=== PATIENT | female | born 1975 | race Hispanic/Latino ===

== ENCOUNTER 2017-08-05 14:30 | Emergency (ER) | payer BC ==
[2017-08-05] MEDS ORDERED: METHYLPREDNISOLONE SOD SUCC 125MG/2ML VIAL ONE (15:26)
[2017-08-05] MEDS ORDERED: ONDANSETRON HCL 4 MG/2 ML VIAL ONE (15:26)
[2017-08-05] MEDS ORDERED: FAMOTIDINE/PF 20 MG/2 ML VIAL IV ONE (15:26)
[2017-08-05] MEDS ORDERED: EPINEPHRINE 1 MG/ML AMPULE ONE (16:42)
[2017-08-05 18:39] LABS: APPEARANCE,URINE Clear (CLEAR); BILIRUBIN,URINE Negative (NEGATIVE); COLOR,URINE Yellow (YELLOW); GLUCOSE, URINE (UA) Negative (NEGATIVE); KETONES,URINE Negative (NEGATIVE); LEUKOCYTE ESTERASE ,URINE Negative (NEGATIVE); NITRATE,URINE Negative (NEGATIVE); OCCULT BLOOD,URINE Negative (NEGATIVE); PH,URINE 7.5 (5.0-8.0); PROTEIN,URINE Negative (NEGATIVE); UROBILINOGEN,URINE 0.2 mg/dL (0.2-1.0)
== END 2017-08-05 20:36 | disposition home or self-care (01) ==
LOC: EDH 14:30
DX: T78.49XA Other allergy, initial encounter (principal); X58.XXXA Exposure to other specified factors, initial encounter
CPT/HCPCS: 81003; 96372; 96374; 96375; 99284; J0171; J2405; J2930; J3490

== ENCOUNTER 2018-03-12 12:14 | Emergency (ER) | payer BC ==
[2018-03-12] MEDS ORDERED: FAMOTIDINE 20MG TAB 20 MG TAB ONE (12:59)
[2018-03-12] MEDS ORDERED: DEXAMETHASONE SOD PHOSPHATE 10MG/ML 1ML VIAL ONE (12:59)
[2018-03-12] MEDS ORDERED: DiphenhydrAMINE HCL 50 MG/ML VIAL ONE (12:59)
== END 2018-03-12 14:50 | disposition home or self-care (01) ==
LOC: EDH 12:14
DX: T78.49XA Other allergy, initial encounter (principal); Z72.0 Tobacco use; X58.XXXA Exposure to other specified factors, initial encounter
CPT/HCPCS: 96372; 99283; J1100; J1200

== ENCOUNTER → 2020-04-29 | Outpatient (CLI) | payer OTHER ==
[2020-04-29 09:39] LABS: INR 0.93 (0.85-1.15); PARTIAL THROMBOPLASTIN TIME 26.7 SEC (26.3-35.5); PROTHROMBIN TIME 10.1 SEC (9.6-11.6)
--- NOTE | 2020-04-29 10:02 | NUR ---
US GUIDED BIOPSY OF LEFT BREAST MASS PROCEDURE PERFORMED BY DR. EATON. PUNCTURE SITE LEFT LATERAL BREAST AND PATIENT TOLERATED PROCEDURE WELL. SPECIMEN X 4 COLLECTED AND SENT TO LAB. TISSUE MARKER DEPLOYED TO BIOPSY SITE. END OF PROCEDURE AT 1012. BIOPSY NEEDLE REMOVED AND DRESSING APPLIED. NO BLEEDING NOTED. DISCHARGE INSTRUCTIONS GIVEN TO PATIENT AND VERBALIZED UNDERSTANDING. DISCHARGED VIA AMBULATORY STABLE, AAO X 3 WITH NO C/O PAIN @ 1030.
== END | disposition home or self-care (01) ==
LOC: RAH 08:24
PROVIDERS: ATTEND Family Medicine
DX: N63.20 Unspecified lump in the left breast, unspecified quadrant (principal)
CPT/HCPCS: 19083; 36415; 85610; 85730; A4215 ×3

== ENCOUNTER 2022-05-19 14:02 | Emergency (ER) | payer OTHER ==
[~2022-05-19] VITALS: Ht 157.5 cm; Wt 97.5 kg
[2022-05-19 14:50] LABS: BASOPHILS % (AUTO) 0.5 % (0.0-5.0); HEMATOCRIT 42.2 % (36-48); LYMPHOCYTES % (AUTO) 26.9 % (21.0-51.0); MEAN CORPUSCULAR HEMOGLOBIN 28.2 pg (27.0-33.0); MEAN CORPUSCULAR HGB CONC 34.1 g/dL (32.0-36.0); MEAN CORPUSCULAR VOLUME 82.7 fL (79-99); MONOCYTES % (AUTO) 8.9 % (3.0-13.0); NEUTROPHILS % (AUTO) 60.2 % (40.0-77.0); PLATELET COUNT (AUTO) 247 K/uL (130-400); WHITE BLOOD COUNT (AUTO) 6.3 K/uL (4.8-10.8)
[2022-05-19] MEDS ORDERED: 0.9%NACL 1000ML IV ONE (14:57)
[2022-05-19] MEDS ORDERED: 0.9%NACL 1000ML 1,000 ML IV ONE (15:00)
[2022-05-19 15:02] LABS: HCG,QUALITATIVE URINE NEGATIVE (NEGATIVE)
[2022-05-19 15:04] LABS: APPEARANCE,URINE CLOUDY (CLEAR); BILIRUBIN,URINE NEGATIVE (NEGATIVE); COLOR,URINE LIGHT-YELLOW (YELLOW); GLUCOSE, URINE (UA) >=1000 mg/dL (NEGATIVE); KETONES,URINE 5 mg/dL (NEGATIVE); LEUKOCYTE ESTERASE ,URINE 500 Leu/uL (NEGATIVE); NITRATE,URINE NEGATIVE (NEGATIVE); PROTEIN,URINE 10 mg/dL (NEGATIVE); UROBILINOGEN,URINE 0.2 mg/dL (0.2-1.0)
[2022-05-19 15:06] LABS: BACTERIA,URINE FEW /HPF (None Seen); MUCUS,URINE RARE LPF (None Seen); RBC,URINE 51-100 /HPF (0-1); SQUAMOUS EPITHELIAL CELL,UR MOD /HPF (0-2); URIC ACID CRYSTALS,URINE RARE /LPF (None Seen); WBC,URINE TNTC /HPF (0-1); YEAST,URINE BUDDING RARE /HPF (None Seen)
[2022-05-19 15:12] LABS: CREATININE 0.9 mg/dL (0.5-1.5); POTASSIUM 3.8 mmol/L (3.5-5.1)
[2022-05-19 15:17] LABS: ALBUMIN 3.9 g/dL (3.5-5.0)
[2022-05-19] MEDS ORDERED: KETOROLAC 30MG VIAL (30MG/ML) IVP STA (16:39)
[2022-05-19] MEDS ORDERED: NAPR-1192 PO (16:50)
[2022-05-19] MEDS ORDERED: TAMS-1 PO (16:50)
[2022-05-19] MEDS ORDERED: CEPH500B PO (16:50)
[2022-05-19 17:09] VITALS: BP 149/85
== END 2022-05-19 17:15 | disposition home or self-care (01) ==
LOC: EDH 14:02
DX: N20.0 Calculus of kidney (principal); K59.00 Constipation, unspecified; N39.0 Urinary tract infection, site not specified; K57.90 Diverticulosis of intestine, part unspecified, without perforation or abscess without bleeding; R16.0 Hepatomegaly, not elsewhere classified; E11.9 Type 2 diabetes mellitus without complications; E78.00 Pure hypercholesterolemia, unspecified; Z79.899 Other long term (current) drug therapy; Z85.3 Personal history of malignant neoplasm of breast
CPT/HCPCS: 99284; 74176; 96374; 96361; 80053; 83690; 85025; 87088; 81001; 81025; 36415; J7030; J1885

== ENCOUNTER → 2023-01-12 | Outpatient (CLI) | payer OTHER ==
[~2023-01-12] MED LIST: CEPH500B PO; NAPR-1192 PO; TAMS-1 PO
== END | disposition home or self-care (01) ==
LOC: RAH 10:01
PROVIDERS: ATTEND Internal Medicine Gastroenterology
DX: R13.10 Dysphagia, unspecified (principal)
CPT/HCPCS: 74240

== ENCOUNTER 2023-07-13 10:39 | Emergency (ER) | payer OTHER ==
[~2023-07-13] VITALS: Ht 162.6 cm; Wt 69.9 kg
[2023-07-13 11:34] VITALS: BP 149/98; PULSE 94; RESP 18
== END 2023-07-13 14:25 | disposition left against medical advice (07) ==
LOC: EDH 10:39
DX: R20.0 Anesthesia of skin (principal); Z53.21 Procedure and treatment not carried out due to patient leaving prior to being seen by health care provider
CPT/HCPCS: 99281